=== PATIENT | female | born 1950 | race Caucasian/White ===

== ENCOUNTER 2016-12-25 08:13 | Day surgery (SDC) | payer MEDICARE, OTHER ==
[~2016-12-25 08:13] MED LIST: FENTANYL 250 MCG/5 ML AMP IV PRN; LACTATED RINGERS 1,000 ML IV SCH; MIDAZOLAM HCL 5 MG/5 ML VIAL IV ONE; MIDAZOLAM HCL 5 MG/5 ML VIAL IV PRN
[2016-12-25] MEDS ORDERED: LACTATED RINGERS 1,000 ML ONE (08:20)
[2016-12-25] MEDS ORDERED: IV START KIT ONE (08:21)
[2016-12-25] MEDS ORDERED: MIDAZOLAM HCL 1 MG/ML 2ML VIAL ONE (08:23)
[2016-12-25] MEDS ORDERED: MIDAZOLAM HCL 5 MG/5 ML VIAL ONE (09:43)
[2016-12-25] MEDS ORDERED: FENTANYL 250 MCG/5 ML AMP ONE (09:43)
== END 2016-12-25 10:50 | disposition home or self-care (01) ==
LOC: SDC 08:13
PROVIDERS: ATTEND Internal Medicine Gastroenterology
PROC: 0DJD8ZZ Inspection of Lower Intestinal Tract, Via Natural or Artificial Opening Endoscopic (ICD-10-PCS; principal; 2016-12-25)
DX: Z12.11 Encounter for screening for malignant neoplasm of colon (principal); Z87.891 Personal history of nicotine dependence
CPT/HCPCS: J3010; J2250 ×2; J7120; G0121